=== PATIENT | female | born 1955 | race Caucasian/White ===

== ENCOUNTER 2016-10-19 09:56 | Observation (INO) | payer OTHER ==
[2016-10-19 10:06] VITALS: BMI 24.7
--- NOTE | 2016-10-19 10:20 | PDOC ---
History of Present Illness - General History Source: Patient Exam Limitations: No Limitations - History of Present Illness Initial Comments: 10/19/16 10:43 The patient is a 60 year old female with a significant past medical history of osteoporosis, Mitral valve prolapse, elevated cholesterol on zocor. who presents to the ED with SOB, and intermittent chest tightness for 2 weeks. Patient describes the chest tightness as non-radiating. Patient states the last episode was this morning at 7 AM, which lasted for 5 minutes. She states the chest tightness dissipates after walking around. She denies any worsening factors. Patient denies palpitations, diaphoresis, fever, chills, cough, nausea, vomiting , diarrhea. Patient denies smoking cigarettes, drug use. Patient drinks alcohol occasionally. Past surgical hx: Hysterectomy, shoulder surgery. Schedule Hanger: Dr. Ag <Mo Coto - Last Filed: 10/19/16 13:12> <Parisa Degroot - Last Filed: 10/19/16 14:26> - General Chief Complaint: Shortness of Breath Stated Complaint: DIFF BREATHING Time Seen by Provider: 10/19/16 10:19 Past History <Mo Coto - Last Filed: 10/19/16 13:12> - Past Medical History Cardiac Disorders: Yes (MVP) - Psycho/Social/Smoking Cessation Hx Suicidal Ideation: No Smoking History: Never smoked <Parisa Degroot - Last Filed: 10/19/16 14:26> - Past Medical History Allergies/Adverse Reactions: Allergies Allergy/AdvReac Type Severity Reaction Status Date / Time No Known Allergies Allergy Verified 10/19/16 10:01 Review of Systems - Review of Systems Comments:: 10/19/16 11:03 CONSTITUTIONAL: No fever, no chills, no fatigue EYES: No visual changes ENT: No ear pain, no sore throat CARDIOVASCULAR: + chest pain. No palpitations RESPIRATORY: + SOB. No cough. GI: No abdominal pain, no nausea, no vomiting, no constipation, no diarrhea GENITOURINARY: No dysuria, no frequency, no hematuria MUSKULOSKELETAL: No backpain, no joint pain, no myalgias SKIN: No rash NEURO: No headache <Mo Coto - Last Filed: 10/19/16 13:12> *Physical Exam - Vital Signs Last Vital Signs Temp Pulse Resp BP Pulse Ox 97.7 F 60 19 134/78 100 10/19/16 10:02 10/19/16 10:02 10/19/16 10:02 10/19/16 10:02 10/19/16 10:02 - Physical Exam Comments: 10/19/16 11:04 CONSTITUTIONAL: Well-appearing; well-nourished; in no apparent distress HEAD: Normocephalic; atraumatic EYES: PERRL; EOM intact ENMT: External appears normal; normal oropharynx NECK: Supple; non-tender; no cervical lymphadenopathy CARD: Normal S1, S2; no murmurs, rubs, or gallops RESP: Normal chest excursion with respiration; breath sounds clear and equal bilaterally; no wheezes, rhonchi, or rales ABD: Soft, non-distended; non-tender; no palpable organomegaly, no palpable hernias EXT: Normal ROM in all four extremities; non-tender to palpation; distal pulses intact SKIN: Warm, dry, no rash NEURO: No focal neurological deficiencies. <Mo Coto - Last Filed: 10/19/16 13:12> - Vital Signs Last Vital Signs Temp Pulse Resp BP Pulse Ox 97.7 F 60 19 134/78 100 10/19/16 10:02 10/19/16 10:02 10/19/16 10:02 10/19/16 10:02 10/19/16 10:02 <Parisa Degroot - Last Filed: 10/19/16 14:26> Heart Score/ECG Review - ECG Intrepretation Comment:: 10/19/16 11:39 Sinus Bradycardia, 52 bpm. Otherwise Normal ECG. <Mo Coto - Last Filed: 10/19/16 13:12> ED Treatment Course - LABORATORY CBC & Chemistry Diagram: 10/19/16 11:20 10/19/16 10:31 <Mo Coto - Last Filed: 10/19/16 13:12> - LABORATORY CBC & Chemistry Diagram: 10/19/16 11:20 10/19/16 10:31 <Parisa Degroot - Last Filed: 10/19/16 14:26> Medical Decision Making - Medical Decision Making 10/19/16 13:[address] Solo. <Mo Coto - Last Filed: 10/19/16 13:12> - Medical Decision Making 10/19/16 11:19 I, Dr. Parisa Degroot, attest that the scribes documentation that appears above has been prepared under my direction and personally reviewed by me. I confirmed that the note above accurately reflects all work, treatment, procedures, and medical decision-making performed by me. 10/19/16 14:23 Pt's labs and xray results noted, pt has remained chest pain free the entire time in ED, Case discussed with Dr Bowles covering for Dr. Ag, He requests tjhat pt get admitted tele observation with stress test before dc. Pt has risk factors for cad, pre diabectic, elevated cholesterol, will admit to tele observation, pt agees with admisison, report given to admitting team,Pt stable at time of this note <Parisa Degroot - Last Filed: 10/19/16 14:26> *DC/Admit/Observation/Transfer - Attestations Scribe Attestion: 10/19/16 11:05 Documentation prepared by Mo Coto, acting as medical billing specialist for Parisa Degroot MD/DO. <Mo Coto - Last Filed: 10/19/16 13:12> - Discharge Dispostion Admit: Yes <Parisa Degroot - Last Filed: 10/19/16 14:26> Diagnosis at time of Disposition: Chest pain - Discharge Dispostion Condition at time of disposition: Stable - Referrals Referrals: Brittni Grubbs [Primary Care Provider] -
[2016-10-19 12:04] LABS: TROPONIN I < 0.02 ng/ml (0.00-0.05)
[2016-10-19 12:15] LABS: ALBUMIN 4.1 g/dl (3.4-5.0); ALK PHOS 54 U/L (45-117); ANION GAP 6 (8-16); BILIRUBIN,TOTAL 0.5 mg/dL (0.2-1.0); CALCIUM 9.4 mg/dL (8.5-10.1); CO2 27 mmol/L (21-32); CREATININE 0.8 mg/dL (0.55-1.02); GLUCOSE,RANDOM 100 mg/dL (74-106); SGOT/AST 18 U/L (15-37); SGPT/ALT 22 U/L (12-78); TOT PROT 7.6 g/dl (6.4-8.2)
[2016-10-19 12:17] LABS: EOSINOPHIL 2.9 % (0-4.5); MCH 30.2 pg (25.7-33.7); MCHC 33.5 g/dl (32.0-36.0); MEAN CELL VOLUME 90.1 fl (80-96); MEAN PLT VOLUME 9.5 fl (7.5-11.1); NEUTROPHILS 42.3 % (42.8-82.8); PLATELET COUNT 250 K/MM3 (134-434); RDW 13.3 % (11.6-15.6); WHITE BLOOD COUNT 6.6 K/mm3 (4.0-10.0)
[2016-10-19] MEDS ORDERED: ACETAMINOPHEN 325 MG TABLET (FP) PO PRN (13:48)
[2016-10-19] MEDS ORDERED: ONDANSETRON 4 MG/2 ML VIAL IVPB PRN (13:48)
[2016-10-19] MEDS ORDERED: ASPIRIN 325 MG ENTERIC COATED TABLET (FP) PO ONE (13:50)
--- NOTE | 2016-10-19 13:51 | HP ---
CHIEF COMPLAINT: Chest pain PCP: Dr. Shellie Grubbs Grain Receiver: Dr. Ag HISTORY OF PRESENT ILLNESS: This is a 60 year old female with a history of HLD ( on statin every other day), MVP, and osteoporosis who presented to the ED today complaining of two weeks of intermittent chest pain. She describes the pain as "tightening" and "squeezing" in nature. She experiences associated shortness of breath but denies nausea or diaphoresis. Pain occurs sometimes at rest and seems to be worse with laying down. She denies cough, fevers/chills, or any other symptoms. ER course was notable for: (1) EKG: Sinus bradycardia at 52bpm (2) CXR: No acute pathology (3) Troponin <0.02 Recent Travel: No international travel PAST MEDICAL HISTORY: As above PAST SURGICAL HISTORY: Tubal ligation, hysterectomy, right shoulder surgery, left elbow surgery in July Social History: Lives with boyfriend, works as [employer] Smoking: None Alcohol: Occasional Drugs: None Family History: Father and brother from lung ca, mother with Castleman disease, sister with colon ca Allergies No Known Allergies Allergy (Verified 10/19/16 10:01) HOME MEDICATIONS: REVIEW OF SYSTEMS CONSTITUTIONAL: Absent: fever, chills, diaphoresis, generalized weakness, malaise, loss of appetite, weight change HEENT: Absent: rhinorrhea, nasal congestion, throat pain, throat swelling, difficulty swallowing, mouth swelling, ear pain, eye pain, visual changes CARDIOVASCULAR: See HPI Absent: syncope, palpitations, irregular heart rate, lightheadedness, peripheral edema RESPIRATORY: Absent: cough, dyspnea with exertion, orthopnea, wheezing, stridor, hemoptysis GASTROINTESTINAL: Absent: abdominal pain, abdominal distension, nausea, vomiting, diarrhea, constipation, melena, hematochezia GENITOURINARY: Absent: dysuria, frequency, urgency, hesitancy, hematuria, flank pain, genital pain MUSCULOSKELETAL: Absent: myalgia, arthralgia, joint swelling, back pain, neck pain SKIN: Absent: rash, itching, pallor HEMATOLOGIC/IMMUNOLOGIC: Absent: easy bleeding, easy bruising, lymphadenopathy, frequent infections ENDOCRINE: Absent: unexplained weight gain, unexplained weight loss, heat intolerance, cold intolerance NEUROLOGIC: Absent: headache, focal weakness or paresthesias, dizziness, unsteady gait, seizure, mental status changes, bladder or bowel incontinence PSYCHIATRIC: Absent: anxiety, depression, suicidal or homicidal ideation, hallucinations. PHYSICAL EXAMINATION Vital Signs - 24 hr 10/19/16 10:02 Temperature 97.7 F Pulse Rate 60 Respiratory 19 Rate Blood Pressure 134/78 O2 Sat by Pulse 100 Oximetry (%) GENERAL: Awake, alert, and fully oriented, in no acute distress. HEAD: Normal with no signs of trauma. EYES: Pupils equal, round and reactive to light, extraocular movements intact, sclera anicteric, conjunctiva clear. No lid lag. EARS, NOSE, THROAT: Ears normal, nares patent, oropharynx clear without exudates. Moist mucous membranes. NECK: Normal range of motion, supple without lymphadenopathy, JVD, or masses. LUNGS: Breath sounds equal, clear to auscultation bilaterally. No wheezes, and no crackles. No accessory muscle use. HEART: Regular rate and rhythm, normal S1 and S2 without murmur, rub or gallop. Pain not reproducible with palpation. ABDOMEN: Soft, nontender, not distended, normoactive bowel sounds, no guarding, no rebound, no masses. No hepatomegaly or splenomegaly. MUSCULOSKELETAL: Normal range of motion at all joints. No bony deformities or tenderness. No CVA tenderness. UPPER EXTREMITIES: 2+ pulses, warm, well-perfused. No cyanosis. No clubbing. No peripheral edema. LOWER EXTREMITIES: 2+ pulses, warm, well-perfused. No calf tenderness. No peripheral edema. NEUROLOGICAL: Cranial nerves II-XII intact. Normal speech. Normal gait. PSYCHIATRIC: Cooperative. Good eye contact. Appropriate mood and affect. SKIN: Warm, dry, normal turgor, no rashes or lesions noted, normal capillary refill. Laboratory Results - last 24 hr 10/19/16 10/19/16 10/19/16 10:31 11:20 11:20 WBC 6.6 RBC 4.60 Hgb 13.9 Hct 41.4 MCV 90.1 MCH 30.2 MCHC 33.5 RDW 13.3 Plt Count 250 MPV 9.5 Neutrophils % 42.3 L Lymphocytes % 44.8 H Monocytes % 9.0 Eosinophils % 2.9 Basophils % 1.0 Sodium 140 Potassium 4.4 Chloride 107 Carbon Dioxide 27 Anion Gap 6 L BUN 15 Creatinine 0.8 Creat Clearance w eGFR > 60 Random Glucose 100 Calcium 9.4 Total Bilirubin 0.5 AST 18 ALT 22 Alkaline Phosphatase 54 Creatine Kinase 139 Troponin I < 0.02 Total Protein 7.6 Albumin 4.1 ASSESSMENT/PLAN: 60 year old female placed in observation for evaluation of chest pain. 1. Chest pain -Monitor on telemetry -Serial troponins to rule out [place] -Check lipid profile, A1C -Continue ASA -Patient's private home aide consulted 2. F/E/N -Low fat/cholesterol diet 3. Ppx -Low risk (short expected length of stay) -Ambulation
[2016-10-19] MEDS ORDERED: ASPIRIN 325 MG ENTERIC COATED TABLET (FP) ONE (14:12)
[2016-10-19] MEDS ORDERED: PNEUMOC 13-VAL CONJ-DIP CRM/PF 0.5 ML DISP.SYRIN IM ONE (18:49)
[2016-10-19] MEDS: ATORVASTATIN CA 20 MG TABLET (FP) PO SCH (22:34)
[2016-10-20 06:07] LABS: BASOPHIL 0.8 % (0-2.0); EOSINOPHIL 3.6 % (0-4.5); MCH 30.4 pg (25.7-33.7); MCHC 33.9 g/dl (32.0-36.0); MEAN CELL VOLUME 89.6 fl (80-96); MEAN PLT VOLUME 10.2 fl (7.5-11.1); NEUTROPHILS 47.8 % (42.8-82.8); PLATELET COUNT 212 K/MM3 (134-434); RDW 12.7 % (11.6-15.6); WHITE BLOOD COUNT 7.1 K/mm3 (4.0-10.0)
[2016-10-20 06:38] LABS: ALBUMIN 3.6 g/dl (3.4-5.0); ANION GAP 5 (8-16); BILIRUBIN,TOTAL 0.4 mg/dL (0.2-1.0); CALCIUM 8.8 mg/dL (8.5-10.1); CHOLESTEROL 163 mg/dL (50-200); CO2 28 mmol/L (21-32); CREATININE 0.9 mg/dL (0.55-1.02); GLUCOSE,RANDOM 98 mg/dL (74-106); LDL CHOLESTEROL (ONLY SJRH) 88 mg/dL (5-100); MAGNESIUM 2.3 mg/dL (1.8-2.4); SGOT/AST 16 U/L (15-37); SGPT/ALT 20 U/L (12-78); TOT PROT 6.7 g/dl (6.4-8.2)
[2016-10-20 06:39] LABS: ALK PHOS 49 U/L (45-117); TROPONIN I < 0.02 ng/ml (0.00-0.05)
--- NOTE | 2016-10-20 06:58 | CON.CARD ---
Consult Consult Specialty:: Cardiology for [place] Referred by:: Dr. Degroot Reason for Consultation:: chest pain - History of Present Illness Chief Complaint: chest pain History of Present Illness: 60F w/ PMH MVP presents to ER w/ 2 weeks of substernal CP occurs randomly. Describes chest tightness at rest and with exertion, intermittently associated with SOB. Not worse w/ exertion. No N/V or diaphoresis. No edema, no PND, no orthopnea. Denies palpitations. ECG w/ no acute ST changes Cardiac enzymes negative x 3. - History Source History Provided By: Patient Limitations to Obtaining History: No Limitations - Past Medical History Cardio/Vascular: Yes: Hyperlipdemia, Other (mitral valve prolapse) Pulmonary: No: Asthma, Bronchitis, Cancer, COPD, O2 Dependent, Pneumonia, Previously Intubated, Pulmonary Embolus, Pulmonary Fibrosis, Sleep Apnea, Other Gastrointestinal: No: Ascites, Cancer, Constipation, Crohn's Disease, Diverticulitis, Diverticulosis, Esophageal Varices, Gastritis, GERD, GI Bleed, Hemorrhoids, Hiatal Hernia, Inflamatory Bowel Disease, Irritable Bowel Disease, Pancreatitis, Peptic Ulcer Disease, Ulcerative Colitis, Other Hepatobiliary: No: Cirrhosis, Cholelithiasis, Cholecystitis, Choledocholithiasis , Hepatitis A, Hepatitis B, Hepatitis C, Other Reproductive: No: Ectopic , Endometriosis, Fibroids, PID, Polycystic Ovary Syndrome, Postmenopausal, Other Heme/Onc: No: Anemia, B12 Deficiency, Bleeding Disorder, Cancer, Current Chemotherapy, Current Radiation Therapy, Hemochromatosis, Hypercoaguable State, Myeloproliferative Synd, Sickle Cell Disease, Sickle Cell Trait, Thrombocytopenia, Other Infectious Disease: No: AIDS, C-Diff, Herpes Zoster, HIV, MRSA, STD's, Tuberculosis, VREF, Other Psych: No: Addictions, Anxiety, Bipolar, Depression, Panic, Psychosis, Schizophrenia, Other Musculoskeletal: No: Bursitis, Chronic low back pain, Hemiparesis, Hemiplegia, Osteoarthritis, Paraplegia, Other Rheumatology: No: Fibromyalgia, Gout, Lupus, Rheumatoid Arthritis, Sarcoidosis, Vasculitis, Other ENT: No: Allergic Rhinitis, Sinusitis, Other Endocrine: No: Walsh's Disease, Hermilo's Disease, Diabetes Insipidus, Diabetes Mellitus, Hyperparathyroidism, Hyperthyroidism, Hypothyroidism, Osteopenia, SIADH, Other Dermatology: No: Basal Cell, Cellulitis, Eczema, Melanoma, Psoriasis, Squamous Cell, Other - Past Surgical History Past Surgical History: No: None, AAA Repair, AICD, Amputation, Appendectomy, Arthrosocopy, AV Fistula/Graft, Bariatric Surgery, Breast Biopsy, Bypass, CABG, Carotid Endarterectomy, Cataract Removal, Cholecystectomy, Colectomy, Colonoscopy, Colostomy, Craniotomy, , Cystectomy, Hernia Repair, Hysterectomy, Ileal Conduit, Ileosotomy, Joint Replacement, Kidney Transplant, Laminectomy, Liver Transplant, Mastectomy, Nephrectomy, Oopherectomy, Orchiectomy, Permanent Pacemaker, Prostatectomy, Splenectomy, Stent, Thoracotomy , TURP, Tonsillectomy, Tubal Ligation, Upper Endoscopy, Valve Replacement, Vasectomy, Vein Stripping/Ligation - Alcohol/Substance Use Hx Alcohol Use: No - Smoking History Smoking history: Never smoked Have you smoked in the past 12 months: No - Social History Usual Living Arrangement: Other (lives w/ boyfriend) History of Recent Travel: No Home Medications - Allergies Allergies/Adverse Reactions: Allergies Allergy/AdvReac Type Severity Reaction Status Date / Time No Known Allergies Allergy Verified 10/19/16 10:01 - Home Medications Home Medications: Ambulatory Orders Aspirin [ASA -] 81 mg PO DAILY 10/19/16 Simvastatin [Zocor -] 40 mg PO Q48H 10/19/16 Family Disease History - Family Disease History Family History: Unremarkable (no early CAD.) Review of Systems Unable to obtain ROS, reason: see ROS - Review of Systems Constitutional: denies: No Symptoms, Chills, Diaphoresis, Fever, Lethargy, Loss of Appetite, Malaise, Night Sweats, Unintentional Wgt. Loss, Weakness, Other Eyes: denies: No Symptoms, Blind Spots, Blurred Vision, Double Vision, Eye Pain , Floaters, Photophobia, Recent Change in Vision, Other Neck: denies: No Symptoms, Decreased ROM, Lumps, Pain on Movement, Stiffness, Swollen Glands, Tenderness, Other Cardiovascular: reports: Chest Pain, Shortness of Breath Respiratory: denies: No Symptoms, Cough, Exercise Intolerance, Hemoptysis, Orthopnea, PND, Snoring, SOB, SOB on Exertion, Wheezing, Other Gastrointestinal: denies: No Symptoms, Abdominal Pain, Bloating, Constipation, Diarrhea, Dysphagia, Indigestion, Melena, Nausea, Rectal Bleeding, Vomiting, Vomiting Blood, Other Genitourinary: denies: No Symptoms, Burning, Discharge, Dysuria, Flank Pain, Frequency, Hematuria, Incontinence, Lesions, Menses, Pain, Testicular Mass, Testicular Pain, Testicular Swelling, Urgency, Vaginal Bleeding, Other Breasts: denies: No Symptoms Reported, See HPI, Breast Implants, Discharge from Nipple, Lumps, Pain, Skin Changes, Other Musculoskeletal: denies: No Symptoms, Back Pain, Crepitus, Decreased ROM, Extremity Pain, Joint Pain, Joint Swelling, Muscle Pain, Muscle Cramps, Muscle Weakness, Other Integumentary: denies: No Symptoms, Blister, Bruising, Change in Color, Eczema, Erythema, Incision, Lesions, Lump, Pallor, Pruritis, Rash, Wound, Other Neurological: denies: No Symptoms, Change in LOC, Change in Speech, Confusion, Dizziness, Headache, Incoordination, Numbness, Parasthesia, Pre-Existing Deficit , Seizure, Syncope, Tremors, Unsteady Gait, Weakness, Other Endocrine: denies: No Symptoms, Excessive Sweating, Flushing, Increased Hunger, Increased Thirst, Intolerance to Cold, Intolerance to Heat, Unexplained Weight Gain, Unexplained Weight Loss, Other Hematology/Lymphatic: denies: No Symptoms, Easily Bruised, Excessive Bleeding, Swollen Glands, Other Psychiatric: denies: No Symptoms, Altered Sleep Pattern, Anxiety, Depression, Hallucinations, Panic, Paranoia, Suicidal, Other - Risk Factors Known Risk Factors: Yes: Hypercholesterolemia Vital Signs: Vital Signs Temperature 98.1 F 10/20/16 05:31 Pulse Rate 58 L 10/20/16 05:31 Respiratory Rate 16 10/20/16 05:31 Blood Pressure 108/66 10/20/16 05:31 O2 Sat by Pulse Oximetry (%) 100 10/20/16 05:00 Constitutional: Yes: No Distress, Calm Eyes: Yes: Conjunctiva Clear HENT: Yes: Atraumatic, Normocephalic Neck: Yes: Supple Respiratory: Yes: CTA Bilaterally Gastrointestinal: Yes: Soft (nontender) Cardiovascular: Yes: Regular Rate and Rhythm JVD: No Carotid Bruit: No PMI: Non-Displaced Heart Sounds: Yes: S1, S2 (RRR, no murmurs) Murmur: No: Systolic Murmur, Diastolic Murmur, Grade 1, Grade 2, Grade 3, Grade 4, Grade 5, Grade 6 Musculoskeletal: No: WNL, Back Pain, Joint Stiffness, Joint Swelling, Muscle Pain, Muscle Weakness, Other Extremities: No: WNL, Amputation, Calf Tenderness, Cold, Cool, Cyanosis, Deformity, Delayed Capillary Refill, Erythema, External Rotation, Internal Rotation, Pallor, Shortened, Other Edema: No Peripheral Pulses WNL: Yes Integumentary: No: WNL, Body Piercing, Bruising, Erythema, Incision, Jaundice, Laceration, Petechiae, Pressure Ulcer, Rash, Skin Tear, Tattoos, Tenting, Onychomycosis, Venous Stasis Changes, Other Neurological: Yes: Alert, Oriented ...Motor Strength: WNL Psychiatric: Yes: WNL - Other Data Labs, Other Data: CBC, BMP 10/20/16 05:10 10/20/16 05:10 Troponin, BNP 10/19/16 10/20/16 18:45 05:10 Troponin I < 0.02 < 0.02 Troponin, BNP 10/19/16 10/20/16 18:45 05:10 Troponin I < 0.02 < 0.02 Laboratory Tests 10/19/16 10/19/16 10/20/16 11:20 18:45 05:10 WBC 7.1 Hgb 13.5 Hct 39.7 Plt Count 212 Sodium Potassium BUN Creatinine Creat Clearance w eGFR Magnesium Total Bilirubin AST Alkaline Phosphatase Creatine Kinase 139 Troponin I < 0.02 < 0.02 Total Protein Albumin Triglycerides Cholesterol Total LDL Cholesterol HDL Cholesterol 10/20/16 05:10 WBC Hgb Hct Plt Count Sodium 139 Potassium 4.6 BUN 17 Creatinine 0.9 Creat Clearance w eGFR > 60 Magnesium 2.3 Total Bilirubin 0.4 AST 16 Alkaline Phosphatase 49 Creatine Kinase 104 Troponin I Total Protein 6.7 Albumin 3.6 Triglycerides 102 Cholesterol 163 Total LDL Cholesterol 88 HDL Cholesterol 61 H Sinus kitty at 52bpm, incomplete RBBB, NSST Echo: Pending Stress Echo: Pending Imaging - Results Chest X-ray: Image Reviewed EKG: Image Reviewed Problem List - Problems (1) Chest pain Code(s): R07.9 - CHEST PAIN, UNSPECIFIED Qualifiers: Chest pain type: unspecified Qualified Code(s): R07.9 - Chest pain, unspecified (2) Mitral valve prolapse Code(s): I34.1 - NONRHEUMATIC MITRAL (VALVE) PROLAPSE (3) Dyspnea Code(s): R06.00 - DYSPNEA, UNSPECIFIED Qualifiers: Dyspnea type: dyspnea on exertion Qualified Code(s): R06.09 - Other forms of dyspnea Assessment/Plan IMP: History of mitral valve prolapse Atypical chest pain REC: Cardiac enzymes and telemetry are unremarkable thus far. Plan for echo in AM to assess MVP and degree of MR. Stress MIBI for further risk stratification. Continue ASA. Dr. Ag will round tomorrow and determine further plan based on results of above diagnostic tests.
--- NOTE | 2016-10-20 09:55 | PN ---
Physical Exam: SUBJECTIVE: Patient seen and examined. No chest pain, but had episode of shortness of breath this morning. OBJECTIVE: Vital Signs Period Temp Pulse Resp BP Sys/Van Pulse Ox Last 24 Hr 98.1 F-98.3 F 58-89 16-22 100-134/63-89 100-100 GENERAL: The patient is awake, alert, and fully oriented, in no acute distress. HEAD: Normal with no signs of trauma. EYES: PERRL, extraocular movements intact, sclera anicteric, conjunctiva clear. No ptosis. ENT: Ears normal, nares patent, oropharynx clear without exudates, moist mucous membranes. NECK: Trachea midline, full range of motion, supple. LUNGS: Breath sounds equal, clear to auscultation bilaterally, no wheezes, no crackles, no accessory muscle use. HEART: Regular rate and rhythm, S1, S2 without murmur, rub or gallop. ABDOMEN: Soft, nontender, nondistended, normoactive bowel sounds, no guarding, no rebound, no hepatosplenomegaly, no masses. EXTREMITIES: 2+ pulses, warm, well-perfused, no edema. NEUROLOGICAL: Cranial nerves II through XII grossly intact. Normal speech, gait not observed. PSYCH: Normal mood, normal affect. SKIN: Warm, dry, normal turgor, no rashes or lesions noted Laboratory Results - last 24 hr 10/19/16 10/20/16 10/20/16 18:45 05:10 05:10 WBC 7.1 RBC 4.43 Hgb 13.5 Hct 39.7 MCV 89.6 MCH 30.4 MCHC 33.9 RDW 12.7 Plt Count 212 MPV 10.2 Neutrophils % 47.8 Lymphocytes % 39.1 Monocytes % 8.7 Eosinophils % 3.6 Basophils % 0.8 Sodium 139 Potassium 4.6 Chloride 106 Carbon Dioxide 28 Anion Gap 5 L BUN 17 Creatinine 0.9 Creat Clearance w eGFR > 60 Random Glucose 98 Calcium 8.8 Magnesium 2.3 Total Bilirubin 0.4 AST 16 ALT 20 Alkaline Phosphatase 49 Creatine Kinase 104 Troponin I < 0.02 < 0.02 Total Protein 6.7 Albumin 3.6 Triglycerides 102 Cholesterol 163 Total LDL Cholesterol 88 HDL Cholesterol 61 H Active Medications Generic Name Dose Route Start Last Admin Trade Name Freq PRN Reason Stop Dose Admin Acetaminophen 650 mg 10/19/16 13:48 Tylenol - PO Q6H PRN FEVER OR PAIN Aspirin 81 mg 10/20/16 10:00 Ecotrin - PO DAILY MER Atorvastatin Calcium 20 mg 10/19/16 22:00 10/19/16 22:34 Lipitor - PO 20 mg Q48H MER Administration Ondansetron HCl 4 mg 10/19/16 13:48 Zofran Injection IVPB Q6H PRN NAUSEA ASSESSMENT/PLAN: 60 year old female placed in observation for evaluation of chest pain. 1. Chest pain -Monitor on telemetry -Serial troponins negative, no ischemic changes on EKG -Continue ASA -For echo/stress tomorrow 2. HLD -Continue Zocor q48h - patient's home regiment 3. F/E/N -Diabetic diet (A1C 6.2% - advise repeating as outpatient, lifestyle modifications) 4. Ppx -Low risk (short expected length of stay) -Ambulation
[2016-10-20] MEDS ORDERED: ASPIRIN 81 MG CHEWABLE TABLETS PO SCH (10:00)
[2016-10-20] MEDS: ASPIRIN COATED 81 MG TABLET.EC PO SCH (16:10)
[2016-10-21 06:19] LABS: BASOPHIL 0.5 % (0-2.0); EOSINOPHIL 2.2 % (0-4.5); MCH 30.2 pg (25.7-33.7); MCHC 33.7 g/dl (32.0-36.0); MEAN CELL VOLUME 89.6 fl (80-96); MEAN PLT VOLUME 9.3 fl (7.5-11.1); NEUTROPHILS 66.4 % (42.8-82.8); PLATELET COUNT 237 K/MM3 (134-434); RDW 13.3 % (11.6-15.6); WHITE BLOOD COUNT 9.6 K/mm3 (4.0-10.0)
[2016-10-21 06:56] LABS: ANION GAP 4 (8-16); CALCIUM 9.1 mg/dL (8.5-10.1); CO2 30 mmol/L (21-32); CREATININE 0.8 mg/dL (0.55-1.02); GLUCOSE,RANDOM 105 mg/dL (74-106)
[2016-10-21] MEDS: ASPIRIN COATED 81 MG TABLET.EC PO SCH (09:14)
--- NOTE | 2016-10-21 09:22 | EKG ---
Test Reason : Blood Pressure : / mmHG Vent. Rate : 052 BPM Atrial Rate : 052 BPM P-R Int : 132 ms QRS Dur : 084 ms QT Int : 420 ms P-R-T Axes : 073 048 016 degrees QTc Int : 390 ms SINUS BRADYCARDIA OTHERWISE NORMAL ECG NO PREVIOUS ECGS AVAILABLE Confirmed by BO CARTY MD ([id number]) on 10/21/2016 9:22:08 AM Referred By: Confirmed By:BO CARTY MD
--- NOTE | 2016-10-21 12:26 | PN ---
Progress Note, Physician History of Present Illness: 60F w/ PMH MVP presents to ER w/ 2 weeks of substernal CP occurs randomly. Describes chest tightness at rest and with exertion, intermittently associated with SOB. Not worse w/ exertion. No N/V or diaphoresis. No edema, no PND, no orthopnea. Denies palpitations. ECG w/ no acute ST changes Cardiac enzymes negative x 3. - Current Medication List Current Medications: Active Medications Acetaminophen (Tylenol -) 650 mg PO Q6H PRN PRN Reason: FEVER OR PAIN Aspirin (Ecotrin -) 81 mg PO DAILY [facility] Last Admin: 10/21/16 09:14 Dose: 81 mg Atorvastatin Calcium (Lipitor -) 20 mg PO Q48H [facility] Last Admin: 10/19/16 22:34 Dose: 20 mg Ondansetron HCl (Zofran Injection) 4 mg IVPB Q6H PRN PRN Reason: NAUSEA - Objective Vital Signs: Vital Signs Temperature 98.9 F 10/21/16 09:06 Pulse Rate 56 L 10/21/16 09:06 Respiratory Rate 20 10/21/16 09:06 Blood Pressure 114/67 10/21/16 09:06 O2 Sat by Pulse Oximetry (%) 99 10/21/16 09:09 Eyes: Yes: WNL, Conjunctiva Clear, EOM Intact HENT: Yes: WNL, Atraumatic, Normocephalic Neck: Yes: WNL, Supple, Trachea Midline Cardiovascular: Yes: WNL, Regular Rate and Rhythm Respiratory: Yes: WNL, Regular, CTA Bilaterally Gastrointestinal: Yes: WNL, Normal Bowel Sounds Genitourinary: Yes: WNL Musculoskeletal: Yes: WNL Extremities: Yes: WNL Edema: No Integumentary: Yes: WNL Neurological: Yes: WNL, Alert, Oriented ...Motor Strength: WNL Psychiatric: Yes: WNL Labs: CBC, BMP 10/21/16 05:05 10/21/16 05:05 Assessment/Plan IMP: History of mitral valve prolapse Atypical chest pain REC: Cardiac enzymes and telemetry are unremarkable thus far. Plan for echo in AM to assess MVP and degree of MR. Stress MIBI for further risk stratification. Continue ASA.
--- NOTE | 2016-10-21 13:05 | DS ---
Physical Exam: SUBJECTIVE: Patient seen and examined. Described a brief period of SOB while waiting for stress test this morning. Otherwise has felt fine. Denies any recurrence of chest pain. No discomfort during stress test. OBJECTIVE: Vital Signs Period Temp Pulse Resp BP Sys/Van Pulse Ox Last 24 Hr 97.9 F-98.9 F 56-89 18-20 110-134/63-84 99-100 PHYSICAL EXAM GENERAL: The patient is awake, alert, and fully oriented, in no acute distress. HEAD: Normal with no signs of trauma. EYES: PERRL, extraocular movements intact, sclera anicteric, conjunctiva clear. ENT: Ears normal, nares patent, oropharynx clear without exudates, moist mucous membranes. NECK: Trachea midline, full range of motion, supple. LUNGS: Breath sounds equal, clear to auscultation bilaterally, no wheezes, no crackles, no accessory muscle use. HEART: Regular rate and rhythm, S1, S2 without murmur, rub or gallop. ABDOMEN: Soft, nontender, nondistended, normoactive bowel sounds, no guarding, no rebound, no hepatosplenomegaly, no masses. EXTREMITIES: 2+ pulses, warm, well-perfused, no edema. NEUROLOGICAL: Cranial nerves II through XII grossly intact. Normal speech, gait not observed. Laboratory Results - last 24 hr 10/21/16 10/21/16 05:05 05:05 WBC 9.6 D RBC 4.45 Hgb 13.4 Hct 39.9 MCV 89.6 MCH 30.2 MCHC 33.7 RDW 13.3 Plt Count 237 MPV 9.3 Neutrophils % 66.4 D Lymphocytes % 22.6 D Monocytes % 8.3 Eosinophils % 2.2 Basophils % 0.5 Sodium 140 Potassium 5.1 Chloride 106 Carbon Dioxide 30 Anion Gap 4 L BUN 11 D Creatinine 0.8 Random Glucose 105 Calcium 9.1 HOSPITAL COURSE: Date of Admission:10/19/16 Date of Discharge: 10/21/16 This is a 60 year old female with a history of HLD, mitral valve prolapse, and osteoporosis who presented to the ED complaining of two weeks of intermittent chest pain. She described the pain as "tightening" and "squeezing" in nature. She experienced associated shortness of breath but denied nausea or diaphoresis. Pain occurs sometimes at rest and seems to be worse with laying down. She denied cough, fevers/chills, or any other symptoms. ER course was notable for: (1) EKG: Sinus bradycardia at 52bpm; no sign of acute ischemic event (2) CXR: No acute pathology (3) Troponin <0.02 Subsequent hospital course Serial troponins were negative. An echocardiagram showed normal LV, normal RV, trace to mild MR, and trace TR. Exercise stress results negative for ischemia, normal HR response, blunted blood pressure response, average exercise capacity. Normal submaximal myocardial perfusion imaging with normal LV size and function , EF 65%. Ready for discharge to home. Minutes to complete discharge: 35 Discharge Summary Reason For Visit: CHEST PAIN Current Active Problems Chest pain (Acute) Dyspnea (Acute) Mitral valve prolapse (Acute) Condition: Improved - Instructions Diet, Activity, Other Instructions: You should follow up with your primary care provider within 1 week of your discharge. Return to the emergency department with any new or worsening symptoms. Referrals: Domenic Ag MD [Staff Physician] - Brittni Grubbs [Primary Care Provider] - Disposition: HOME - Home Medications Comprehensive Discharge Medication List: Ambulatory Orders Aspirin [ASA -] 81 mg PO DAILY 10/19/16 Simvastatin [Zocor -] 40 mg PO Q48H 10/19/16 This patient is new to me today: Yes Date on this admission: 10/21/16 Emergency Visit: Yes ED Registration Date: 10/19/16 Care time: The patient presented to the Emergency Department on the above date and was hospitalized for further evaluation of their emergent condition. Critical Care patient: No - Discharge Referral Referred to [facility] No
--- NOTE | 2016-10-21 18:45 | PN ---
Physical Exam: SUBJECTIVE: Patient seen and examined. OBJECTIVE: Vital Signs Period Temp Pulse Resp BP Sys/Van Pulse Ox Last 24 Hr 97.9 F-99.3 F 56-89 18-21 114-134/62-84 99-100 GENERAL: The patient is awake, alert, and fully oriented, in no acute distress. HEAD: Normal with no signs of trauma. EYES: PERRL, extraocular movements intact, sclera anicteric, conjunctiva clear. No ptosis. ENT: Ears normal, nares patent, oropharynx clear without exudates, moist mucous membranes. NECK: Trachea midline, full range of motion, supple. LUNGS: Breath sounds equal, clear to auscultation bilaterally, no wheezes, no crackles, no accessory muscle use. HEART: Regular rate and rhythm, S1, S2 without murmur, rub or gallop. ABDOMEN: Soft, nontender, nondistended, normoactive bowel sounds, no guarding, no rebound, no hepatosplenomegaly, no masses. EXTREMITIES: 2+ pulses, warm, well-perfused, no edema. NEUROLOGICAL: Cranial nerves II through XII grossly intact. Normal speech, gait not observed. Laboratory Results - last 24 hr 10/21/16 10/21/16 05:05 05:05 WBC 9.6 D RBC 4.45 Hgb 13.4 Hct 39.9 MCV 89.6 MCH 30.2 MCHC 33.7 RDW 13.3 Plt Count 237 MPV 9.3 Neutrophils % 66.4 D Lymphocytes % 22.6 D Monocytes % 8.3 Eosinophils % 2.2 Basophils % 0.5 Sodium 140 Potassium 5.1 Chloride 106 Carbon Dioxide 30 Anion Gap 4 L BUN 11 D Creatinine 0.8 Random Glucose 105 Calcium 9.1 Active Medications Generic Name Dose Route Start Last Admin Trade Name Freq PRN Reason Stop Dose Admin Acetaminophen 650 mg 10/19/16 13:48 Tylenol - PO Q6H PRN FEVER OR PAIN Aspirin 81 mg 10/20/16 10:00 10/21/16 09:14 Ecotrin - PO 81 mg DAILY MER Administration Atorvastatin Calcium 20 mg 10/19/16 22:00 10/19/16 22:34 Lipitor - PO 20 mg Q48H MER Administration Ondansetron HCl 4 mg 10/19/16 13:48 Zofran Injection IVPB Q6H PRN NAUSEA ASSESSMENT/PLAN:
[2016-10-21] MEDS: ATORVASTATIN CA 20 MG TABLET (FP) PO SCH (21:18)
[2016-10-22] MEDS: ASPIRIN COATED 81 MG TABLET.EC PO SCH (10:04)
[2016-10-22 12:54] VITALS: PULSE 69
[2016-10-22 15:08] VITALS: BP 112/66; TEMP 98.9
--- NOTE | 2016-10-22 15:23 | PN ---
Progress Note, Physician History of Present Illness: The patient is a 60 year old female with a significant past medical history of osteoporosis, Mitral valve prolapse, elevated cholesterol on zocor. who presents to the ED with SOB, and intermittent chest tightness for 2 weeks. Patient describes the chest tightness as non-radiating. Patient states the last episode was this morning at 7 AM, which lasted for 5 minutes. She states the chest tightness dissipates after walking around. She denies any worsening factors. Patient denies palpitations, diaphoresis, fever, chills, cough, nausea, vomiting , diarrhea. Patient denies smoking cigarettes, drug use. Patient drinks alcohol occasionally. Past surgical hx: Hysterectomy, shoulder surgery. Ship Officer: Dr. Ag - Current Medication List Current Medications: Active Medications Acetaminophen (Tylenol -) 650 mg PO Q6H PRN PRN Reason: FEVER OR PAIN Aspirin (Ecotrin -) 81 mg PO DAILY [facility] Last Admin: 10/22/16 10:04 Dose: 81 mg Atorvastatin Calcium (Lipitor -) 20 mg PO Q48H [facility] Last Admin: 10/21/16 21:18 Dose: 20 mg Ondansetron HCl (Zofran Injection) 4 mg IVPB Q6H PRN PRN Reason: NAUSEA - Objective Vital Signs: Vital Signs Temperature 98.9 F 10/22/16 14:00 Pulse Rate 69 10/22/16 14:00 Respiratory Rate 22 10/22/16 14:00 Blood Pressure 112/66 10/22/16 15:07 O2 Sat by Pulse Oximetry (%) 95 10/22/16 12:00 Labs: CBC, BMP 10/21/16 05:05 10/21/16 05:05
== END 2016-10-22 15:00 | disposition home or self-care (01) ==
LOC: JER 09:56 → JERBED 13:51 → J2W 17:41
PROVIDERS: ADMIT Internal Medicine; ATTEND Nurse Practitioner Acute Care
PROC: 3E033GC Introduction of Other Therapeutic Substance into Peripheral Vein, Percutaneous Approach (ICD-10-PCS; principal; 2016-10-19)
PROC: 3E0234Z Introduction of Serum, Toxoid and Vaccine into Muscle, Percutaneous Approach (ICD-10-PCS; 2016-10-19)
DX: R07.89 Other chest pain (principal); I34.1 Nonrheumatic mitral (valve) prolapse; M81.0 Age-related osteoporosis without current pathological fracture; R06.09 Other forms of dyspnea; E78.5 Hyperlipidemia, unspecified
CPT/HCPCS: 36415; 71020-TC; 78452-TC; 80048; 80053; 80061; 82550; 83036; 83721; 83735; 84484; 85025; 90670; 93005; 93010; 93017; 93306-TC; 99284-25; A9502; G0378

== ENCOUNTER 2019-01-08 17:22 | Emergency (ER) | payer OTHER ==
--- NOTE | 2019-01-08 17:35 | PDOC ---
Rapid Medical Evaluation Chief Complaint: Back Pain Time Seen by Provider: 01/08/19 17:32 Medical Evaluation: Allergies Allergy/AdvReac Type Severity Reaction Status Date / Time No Known Allergies Allergy Verified 01/08/19 17:33 01/08/19 17:33 Pt c/o: low back pain after lifting milk crate, pain worse with movement, no other complaints Pt on brief exam: no midline tenderness, mild cva tenderness Pt ordered for: ua, flexeril and toradol Pt to proceed to the ED Discharge Disposition - Diagnosis Back pain - Referrals - Patient Instructions - Post Discharge Activity
[2019-01-08] MEDS ORDERED: KETOROLAC TROMETHAMINE 60 MG/2 ML VIAL IM ONE (17:36)
[2019-01-08] MEDS ORDERED: CYCLOBENZAPRINE HCL 10 MG TABLET (FP) PO ONE (17:36)
[2019-01-08 17:42] VITALS: BP 152/69; PULSE 73; TEMP 97.8; BMI 25.4
[2019-01-08] MEDS ORDERED: METHOCARBAMOL 500 MG TABLET PO ONE (17:55)
[2019-01-08] MEDS ORDERED: METHOCARBAMOL 500 MG TABLET ONE (18:04)
[2019-01-08] MEDS ORDERED: KETOROLAC TROMETHAMINE 60 MG/2 ML VIAL ONE (18:04)
--- NOTE | 2019-01-08 18:20 | PDOC ---
History of Present Illness - General Chief Complaint: Back Pain Stated Complaint: BACK PAIN Time Seen by Provider: 01/08/19 17:32 History Source: Patient Exam Limitations: Clinical Condition - History of Present Illness Initial Comments: 01/08/19 18:15 Patient with no significant past medical history presented with complaint of right lower back pain status post heavy lifting yesterday at work. Patient reports she was at the kitchen lifted a crate of milk yesterday and felt the back strain yesterday. With point started having mild pain in the lower right back yesterday which has been persistent today. Patient did not take anything for pain. Denies radiculopathy, numbness or tingling sensation. Denies problems with ambulation. Denies saddle paresthesia, urinary or fecal incontinence. Denies urinary frequency, dysuria or burning with urination. Denies any other symptoms Occurred: reports: yesterday Past History - Past Medical History Allergies/Adverse Reactions: Allergies Allergy/AdvReac Type Severity Reaction Status Date / Time No Known Allergies Allergy Verified 01/08/19 17:33 Home Medications: Ambulatory Orders Simvastatin [Zocor -] 40 mg PO Q48H 10/19/16 Methocarbamol [Robaxin -] 500 mg PO BID PRN #14 tablet 01/08/19 Naproxen 500 mg PO BID PRN #20 tablet 01/08/19 Cardiac Disorders: Yes (MVP) COPD: No - Immunization History Immunization Up to Date: Yes - Psycho Social/Smoking Cessation Hx Smoking History: Never smoked Have you smoked in the past 12 months: No Hx Alcohol Use: No Drug/Substance Use Hx: No Hx Substance Use Treatment: No Review of Systems - Review of Systems Able to Perform ROS?: Yes Is the patient limited [place] proficient: No Constitutional: No: Malaise, Weakness HEENTM: No: Symptoms Reported Respiratory: No: Symptoms reported Cardiac (ROS): No: Symptoms Reported ABD/GI: No: Symptoms Reported, Nausea, Vomiting Musculoskeletal: Yes: Symptoms Reported, See HPI, Back Pain (right lower back), Muscle Pain (right lower back). No: Joint Stiffness Integumentary: No: Symptoms Reported Neurological: No: Symptoms reported, Numbness, Paresthesia, Weakness, Dizziness All Other Systems: Reviewed and Negative *Physical Exam - Vital Signs Last Vital Signs Temp Pulse Resp BP Pulse Ox 97.8 F 73 17 152/69 98 01/08/19 17:33 01/08/19 17:33 01/08/19 17:33 01/08/19 17:33 01/08/19 17:33 - Physical Exam Comments: 01/08/19 18:19 GENERAL: Well developed, well nourished. Awake and alert in mild acute distress. CARDIOVASCULAR: Regular rate and rhythm. No murmurs, rubs, or gallops. PULMONARY: No evidence of respiratory distress. Lungs clear to auscultation bilaterally. No wheezing, rales or rhonchi. ABDOMINAL: Soft. Non-tender. Non-distended. No rebound or guarding. No organomegaly. Normoactive bowel sounds MUSCULOSKELETAL : mild tenderness over posterior paravertebral muscle of lumbosacral spine of L5-S2 on the right sides which is worse with external rotation of the hip to the left. No bony deformities. No CVA tenderness bilateral SKIN: Warm and dry. Normal capillary refill. NEUROLOGICAL: Alert, awake, appropriate. No motor deficits in the lower extremities. Gait is normal without ataxia. PSYCHIATRIC: Cooperative. Good eye contact. Appropriate mood and affect. General Appearance: Yes: Nourished, Appropriately Dressed, Mild Distress ED Treatment Course - Medications Given in the ED: ED Medications Discontinued Medications Generic Name Dose Route Start Last Admin Trade Name Freq PRN Reason Stop Dose Admin Cyclobenzaprine HCl 5 mg 01/08/19 17:36 01/08/19 18:11 Flexeril - PO 01/08/19 17:37 Not Given ONCE ONE Ketorolac Tromethamine 60 mg 01/08/19 17:36 01/08/19 18:05 Toradol Injection - IM 01/08/19 17:37 60 mg ONCE ONE Administration Methocarbamol 500 mg 01/08/19 17:55 01/08/19 18:05 Robaxin - PO 01/08/19 17:56 500 mg ONCE ONE Administration Medical Decision Making - Medical Decision Making 01/08/19 18:16 Patient with no significant past medical history presented with complaint of right lower back pain status post heavy lifting yesterday at work. Patient reports she was at the kitchen lifted a crate of milk yesterday and felt the back strain yesterday. With point started having mild pain in the lower right back yesterday which has been persistent today. Patient did not take anything for pain. Denies radiculopathy, numbness or tingling sensation. Denies problems with ambulation. Denies saddle paresthesia, urinary or fecal incontinence. Denies urinary frequency, dysuria or burning with urination. Denies any other symptoms Exam significant for mild tenderness to right paravertebral muscle of lumbar sacral spine of L5-S1 on right side which is worse with external rotation of the hip to left. No CVA tenderness bilateral. Symptoms back strain. Toradol 60 mg IM and Robaxin 5 mg p.o. ordered for pain and spasm. Patient stable for discharge on naproxen as needed for pain and Robaxin as needed for spasm with PCP follow-up. Patient advised to apply hot compress to lower back as needed for pain. Referral to spine orthopedics given to follow-up as needed Discharge - Discharge Information Problems reviewed: Yes Clinical Impression/Diagnosis: Back pain Qualifiers: Back pain location: low back pain Chronicity: acute Back pain laterality: right Sciatica presence: without sciatica Qualified Code(s): M54.5 - Low back pain Condition: Stable Disposition: HOME - Admission No - Additional Discharge Information Prescriptions: Methocarbamol [Robaxin -] 500 mg PO BID PRN #14 tablet PRN Reason: Back Pain Naproxen 500 mg PO BID PRN #20 tablet PRN Reason: Back Pain - Follow up/Referral Referrals: Rodriguez Pollard MD, [facility] [Staff Physician] - - Patient Discharge Instructions Patient Printed Discharge Instructions: DI for Low Back Pain Additional Instructions: Your symptoms is likely caused by back strain. Take prescribed medication as needed for back pain. Apply hot compress to low back to 3 times a day as needed for pain. Follow-up with orthopedic protective service specialist if no improvement in 4 days. No heavy lifting or strenuous activity for the next 3 to 4 days. - Post Discharge Activity
== END 2019-01-08 18:28 | disposition home or self-care (01) ==
LOC: JERFT 17:22
PROC: 3E0233Z Introduction of Anti-inflammatory into Muscle, Percutaneous Approach (ICD-10-PCS; principal; 2019-01-08)
DX: S39.012A Strain of muscle, fascia and tendon of lower back, initial encounter (principal); X50.0XXA Overexertion from strenuous movement or load, initial encounter; Y93.89 Activity, other specified; Y92.218 Other school as the place of occurrence of the external cause; Y99.0 Civilian activity done for income or pay
CPT/HCPCS: 96372; 99282-25

== ENCOUNTER 2021-03-06 14:09 | Emergency (ER) | payer OTHER ==
[2021-03-06 14:29] VITALS: BP 139/68; PULSE 72; TEMP 98.5; BMI 27.6
== END 2021-03-06 18:17 | disposition home or self-care (01) ==
LOC: JER 14:09
DX: J18.9 Pneumonia, unspecified organism (principal)
CPT/HCPCS: 71046-TC-FY; 99284-25; C9803; U0003; U0005

== ENCOUNTER 2023-11-04 10:16 | Emergency (ER) | payer OTHER ==
[2023-11-04 11:39] LABS: EOS % 3.5 % (0-4.5); HEMATOCRIT 38.7 % (32.4-45.2); HEMOGLOBIN 13.5 GM/dL (10.7-15.3); LYMPH % 29.2 % (8-40); MCH 30.8 pg (25.7-33.7); MCHC 34.8 g/dl (32.0-36.0); MEAN CELL VOLUME 88.5 fl (80-96); MONO % 8.4 % (3.8-10.2); NEUT % 57.9 % (42.8-82.8); PLATELET COUNT 257 10^3/uL (134-434); RBC 4.38 M/mm3 (3.60-5.2); RDW 13.8 % (11.6-15.6); WHITE BLOOD COUNT 6.3 K/mm3 (4.0-10.0)
[2023-11-04 11:48] LABS: EPI CELLS 2 /uL (0-25.1); HYALINE CASTS 1 /uL (0-3.1); PH,URINE 5.5 (5.0-8.0); URINE APPEARANCE CLEAR; URINE BACTERIA 2 /uL (0-1359); URINE BILIRUBIN NEGATIVE (NEGATIVE); URINE COLOR YELLOW; URINE GLUCOSE (UA) NEGATIVE (NEGATIVE); URINE KETONE TRACE (NEGATIVE); URINE LEUK ESTERASE NEGATIVE (NEGATIVE); URINE NITRITE NEGATIVE (NEGATIVE); URINE PROTEIN NEGATIVE (NEGATIVE); URINE RBC 33 /uL (0-23.9); URINE UROBILINOGEN 0.2 mg/dL (0.2-1.0); URINE WBC 7 /uL (0-25.8)
[2023-11-04 11:58] LABS: POTASSIUM 4.6 mmol/L (3.5-5.1)
[2023-11-04 12:00] LABS: CALCIUM 9.3 mg/dL (8.5-10.1)
[2023-11-04 12:01] LABS: ALBUMIN 4.2 g/dl (3.4-5.0); BLOOD UREA NITROGEN 10.4 mg/dL (7-18); MAGNESIUM 2.4 mg/dL (1.8-2.4)
[2023-11-04 12:05] LABS: BILIRUBIN,TOTAL 0.6 mg/dL (0.2-1)
[2023-11-04 15:14] VITALS: BP 135/76; PULSE 68; RESP 16; TEMP 98.8; BMI 27.5
== END 2023-11-04 13:59 | disposition home or self-care (01) ==
LOC: JER 10:16
DX: K59.00 Constipation, unspecified (principal); K57.32 Diverticulitis of large intestine without perforation or abscess without bleeding; R10.84 Generalized abdominal pain
CPT/HCPCS: 36415; 74177-TC; 80053; 81003; 82272; 83735; 85025; 87086; 99285-25

== ENCOUNTER 2024-11-10 11:38 | Emergency (ER) | payer OTHER ==
[2024-11-10 11:56] VITALS: BP 129/60; PULSE 74; TEMP 98.3; BMI 27.2
== END 2024-11-10 12:43 | disposition home or self-care (01) ==
LOC: JER 11:38 → JERFT 11:38
DX: L30.4 Erythema intertrigo (principal); R21 Rash and other nonspecific skin eruption
CPT/HCPCS: 99283-25